=== PATIENT | male | born 1950 | race Caucasian/White ===

== ENCOUNTER 2024-01-15 08:58 | Outpatient (CLI) | payer MEDICARE, SELFPAY | END 2024-01-15 08:59 | disposition home or self-care (01) | PROVIDERS: PCP Internal Medicine; Visit Provider Internal Medicine | DX: E78.5 Hyperlipidemia, unspecified (principal); Z12.5 Encounter for screening for malignant neoplasm of prostate; Z13.1 Encounter for screening for diabetes mellitus | CPT/HCPCS: 80061; 82947; G0103 ==

== ENCOUNTER 2024-02-22 13:40 | Outpatient (CLI) | payer MEDICARE, SELFPAY | END 2024-02-22 13:41 | disposition home or self-care (01) | PROVIDERS: PCP Internal Medicine; Visit Provider Internal Medicine | DX: I34.0 Nonrheumatic mitral (valve) insufficiency (principal); I35.0 Nonrheumatic aortic (valve) stenosis | CPT/HCPCS: 93306 ==

== ENCOUNTER 2025-06-19 07:30 | Outpatient (CLI) | payer MEDICARE, SELFPAY | END 2025-06-19 07:31 | disposition home or self-care (01) | LOC: NFLDREF 06-22 08:23 | PROVIDERS: PCP Internal Medicine; Referring Provider Internal Medicine; Visit Provider Internal Medicine | DX: E78.5 Hyperlipidemia, unspecified (principal) | CPT/HCPCS: 80061; G0103 ==